=== PATIENT | female | born 1970 | race Asian ===

== ENCOUNTER 2020-08-30 08:29 | Day surgery (SDC) | payer OTHER, SELFPAY ==
[~2020-08-30] VITALS: Ht 162.6 cm; Wt 56.7 kg
[2020-08-30] MEDS ORDERED: diphenhydrAMINE 50 MG/ML VIAL ONE (10:43)
[2020-08-30] MEDS ORDERED: MIDAZOLAM 2 MG/2 ML VIAL ONE (10:43)
[2020-08-30] MEDS ORDERED: MIDAZOLAM 5 MG/5 ML VIAL ONE (10:44)
[2020-08-30] MEDS ORDERED: LIDOCAINE 2% 100 MG/5 ML UJET TP ONE ×2 (10:44→11:10)
[2020-08-30] MEDS ORDERED: fentaNYL citrate 0.05 MG/ML VIAL ONE (10:44)
[2020-08-30] MEDS ORDERED: fentaNYL citrate 0.05 MG/ML VIAL IVP ONE (11:10)
[2020-08-30] MEDS ORDERED: MIDAZOLAM 2 MG/2 ML VIAL IVP ONE (11:10)
== END 2020-08-30 12:05 | disposition home or self-care (01) ==
LOC: MDS 08:29 → MMU 08:32 → MDS 12:05
PROVIDERS: ATTEND Internal Medicine Gastroenterology
DX: K62.5 Hemorrhage of anus and rectum (principal); K64.8 Other hemorrhoids; E78.00 Pure hypercholesterolemia, unspecified; Z20.822 Contact with and (suspected) exposure to COVID-19; Z79.899 Other long term (current) drug therapy
CPT/HCPCS: 45378; J2250; J3010; U0003; J1200

== ENCOUNTER 2021-11-14 09:50 | Day surgery (SDC) | payer OTHER ==
[~2021-11-14] VITALS: Ht 162.6 cm; Wt 59.0 kg
[2021-11-14] MEDS ORDERED: diphenhydrAMINE 50 MG/ML VIAL ONE (10:56)
[2021-11-14] MEDS ORDERED: fentaNYL citrate 0.05 MG/ML VIAL ONE ×2 (10:56)
[2021-11-14] MEDS ORDERED: MIDAZOLAM 5 MG/5 ML VIAL ONE (10:56)
[2021-11-14] MEDS ORDERED: fentaNYL citrate 0.05 MG/ML VIAL IVP ONE (12:50)
[2021-11-14] MEDS ORDERED: MIDAZOLAM 2 MG/2 ML VIAL IVP ONE (12:50)
== END 2021-11-14 12:05 | disposition home or self-care (01) ==
LOC: MMU 09:50 → MDS 09:50
PROVIDERS: ATTEND Internal Medicine Gastroenterology
DX: R10.13 Epigastric pain (principal); K59.00 Constipation, unspecified; E78.5 Hyperlipidemia, unspecified; Z98.890 Other specified postprocedural states; Z20.822 Contact with and (suspected) exposure to COVID-19
CPT/HCPCS: 43239; 87426; J2250; J3010; J1200